=== PATIENT | female | born 1985 ===

== ENCOUNTER 2017-06-16 10:23 | Emergency (ER) | payer MEDICAID ==
--- NOTE | 2017-06-16 11:20 | C.PDOC ---
History Of Present Illness 31 y/o female presents to ED with complaints of intermittent vertigo and dizziness for 5 days worse with position change. Patient also reports neck and lower back pain but denies fever, focal weakness, urinary or bowel incontinence , vomiting or any other complaints at this time. VERTIGO LIKE DIZZY X 5 DAYS. INTERMIT WORSE W POSITION CHANGE. +NECK, LOWER BACK PAIN. NO FEVER, FOCAL WEAK. EXAM MILD DIST +B/L HORIZ FAST NYSTAGMUS W INDUCIBLE VERTIGO. +VERTIGO W POSITION CHANGE NECK SUPPLE +B/L LAT SPASM W LOCAL TEND BACK NEG NEURO NEG REMAINDER NEG (Ho,Anna) History Per: Patient History/Exam Limitations: no limitations Onset/Duration Of Symptoms: Days Current Symptoms Are (Timing): Still Present Associated Symptoms Preceding Syncopal Episode: Vertigo Worse With Change In Head Position Time Seen by Provider: 06/16/17 11:01 Chief Complaint (Nursing): Dizziness/Lightheaded Past Medical History Reviewed: Historical Data, Nursing Documentation, Vital Signs - Medical History PMH: Depression, Migraine Surgical History: No Surg Hx Family History: States: No Known Family Hx - Social History Hx Alcohol Use: No Hx Substance Use: No - Immunization History Hx Tetanus Toxoid Vaccination: Yes Hx Influenza Vaccination: No Hx Pneumococcal Vaccination: No Vital Signs: Last Vital Signs Temp 97.9 F 06/16/17 13:55 Pulse 75 06/16/17 13:55 Resp 18 06/16/17 13:55 BP 111/74 06/16/17 13:55 Pulse Ox 98 06/16/17 14:15 Review Of Systems Except As Marked, All Systems Reviewed And Found Negative. Gastrointestinal: Positive for: Nausea. Negative for: Vomiting, Diarrhea Genitourinary: Negative for: Dysuria, Frequency, Hematuria Musculoskeletal: Positive for: Neck Pain, Back Pain Skin: Negative for: Rash Neurological: Positive for: Dizziness. Negative for: Weakness, Numbness Physical Exam - Physical Exam Appears: Non-toxic, Other (mild distress, +vertigo with position change) Skin: Normal Color, Warm, Dry, No Rash Head: Normacephalic Eye(s): bilateral: Other (Horizontazl fast nystagmus w/ inducible vertigo) Oral Mucosa: Moist Neck: Supple, Other (+ bilateral lasteral spasm with local tenderness) Chest: Symmetrical Back: No CVA Tenderness, No Paraspinal Tenderness Neurological/Psych: Oriented x3, Normal Speech, Normal Motor, Normal Sensation ED Course And Treatment ECG: Interpreted By Me ECG Rhythm: Sinus Rhythm ECG Interpretation: Normal Rate From EC (bpm) O2 Sat by Pulse Oximetry: 98 (ra) Pulse Ox Interpretation: Normal Progress - Data Reviewed Data Reviewed: Diagnostic imaging - Re-Evaluation Re-evaluation Note: 06/16/17 12:58 CO PERSIST VERTIGO. AMBUL W ASSISTANCE. CO PERSIST NECK PAIN. 06/16/17 14:11 ALSO REPORTS INTERMIT FINGER PARESTHESIA FOR MONTHS, WORSE @ NIGHT. NO FOCAL WEAKNESS. FEELS BETTER S/P VALIUM, LIDODERM. ADVISED FU PMD POSSIBLE C SPINE RADICULOPATHY (Anna Estrada) Disposition Counseled Patient/Family Regarding: Studies Performed, Diagnosis, Need For Followup, Rx Given - Disposition Disposition Time: 14:12 - Disposition Referrals: YOUR,PMD [Other] Disposition: HOME/ ROUTINE Condition: IMPROVED Prescriptions: diaZEpam [Valium] 2 mg PO TID PRN #15 tab PRN Reason: Muscle Spasm Lidocaine 5% [Lidoderm] 1 ea TD PRN PRN #10 patch PRN Reason: Pain, Moderate (4-7) Ondansetron [Zofran Odt] 4 mg PO TID PRN #9 odt PRN Reason: Nausea/Vomiting Instructions: Vertigo (ED), Cervical Radiculopathy (ED) Forms: [employer] ([place]ian), Work Excuse Print Language: ENGLISH - Clinical Impression Clinical Impression: Vertigo, Neck pain - Scribe Statement The provider has reviewed the documentation as recorded by the Scribe - Scribe Statement Nerissa Rojas All medical record entries made by the Scribe were at my direction and personally dictated by me. I have reviewed the chart and agree that the record accurately reflects my personal performance of the history, physical exam, medical decision making, and the department course for this patient. I have also personally directed, reviewed, and agree with the discharge instructions and disposition. (Anna Estrada) Addendum Addendum: 06/16/17 17:04 Pharmacy [facility] called Lidoderm patch was too expensive, pt could not afford Medication changed to Voltaren Oitment (Varano,Veronica Suri)
--- NOTE | 2017-06-16 11:45 | CT ---
PROCEDURE: CT HEAD WITHOUT CONTRAST. HISTORY: VERTIGO COMPARISON: None available. TECHNIQUE: Axial computed tomography images were obtained through the head/brain without intravenous contrast. Radiation dose: Total exam DLP = 875.27 mGy-cm. This CT exam was performed using one or more of the following dose reduction techniques: Automated exposure control, adjustment of the mA and/or kV according to patient size, and/or use of iterative reconstruction technique. FINDINGS: HEMORRHAGE: No intracranial hemorrhage. BRAIN: No mass effect or edema. No atrophy or chronic microvascular ischemic changes. VENTRICLES: Unremarkable. No hydrocephalus. CALVARIUM: Unremarkable. PARANASAL SINUSES: Unremarkable as visualized. No significant inflammatory changes. MASTOID AIR CELLS: Unremarkable as visualized. No inflammatory changes. OTHER FINDINGS: None. IMPRESSION: Normal CT of the Head.
[2017-06-16] MEDS ORDERED: Lidocaine 5% Patch TD STA (12:58)
[2017-06-16] MEDS ORDERED: Lidocaine 5% Patch TD ONE (13:13)
[2017-06-16 14:01] VITALS: BP 111/74; PULSE 75; RESP 18; TEMP 97.9
[2017-06-16 14:14] VITALS: O2SAT 98
--- NOTE | 2017-06-21 13:05 | CARD ---
APPROVED REPORT EKG Measurement Heart [id number] <Conclusion> Normal sinus rhythm Normal ECG
== END 2017-06-16 14:33 | disposition home or self-care (01) ==
LOC: C.ER 10:23
DX: R42 Dizziness and giddiness (principal); M54.2 Cervicalgia